=== PATIENT | female | born 1935 | race Caucasian/White ===

== ENCOUNTER 2022-04-25 19:28 | Emergency (ER) | payer MEDICARE ==
[~2022-04-25] VITALS: Ht 167.6 cm; Wt 68.0 kg
[2022-04-25] MEDS ORDERED: ONDANSETRON HCL INJ 2MG/ML 2ML 2 MG/ML VIAL IV STA (19:56)
[2022-04-25] MEDS ORDERED: SODIUM CHLORIDE 0.9% 1000ML 1,000 ML IV STA ×2 (19:56→20:56)
[2022-04-25 20:33] LABS: BASOPHILS % 0.4 % (0.0-1.0); EOSINOPHILS # (AUTO) 0.2 (0.0-0.4); EOSINOPHILS % 2.7 % (0.0-6.0); HEMATOCRIT 36.8 % (34.2-44.1); HEMOGLOBIN 11.9 g/dL (12.0-16.0); LYMPHOCYTES # (AUTO) 2.4 (1.0-3.2); LYMPHOCYTES % 29.1 % (18.0-39.1); MEAN CORPUSCULAR HEMOGLOBIN 30.9 pg (28-32); MEAN CORPUSCULAR HGB CONC 32.3 g/dL (31-35); MEAN CORPUSCULAR VOLUME 95.6 fL (81-99); MONOCYTES # (AUTO) 0.7 (0.2-0.8); MONOCYTES % 7.8 % (4.4-11.3); NEUTROPHILS # (AUTO) 4.9 (2.1-6.9); NEUTROPHILS % 59.5 % (38.7-80.0); PLATELET COUNT 190 x10e3/uL (140-360); RED BLOOD COUNT 3.85 x10e6/uL (3.6-5.1); RED CELL DISTRIBUTION WIDTH 13.3 % (11.7-14.4)
[2022-04-25 20:36] LABS: CLARITY,URINE CLEAR (CLEAR); COLOR,URINE ORANGE (YELLOW); KETONES,URINE TRACE (NEGATIVE); LEUKOCYTE ESTERASE ,URINE NEGATIVE (NEGATIVE); NITRITE,URINE POSITIVE (NEGATIVE); PROTEIN,URINE DIPSTICK 1+ (NEGATIVE); URINE UROBILINOGEN 1 mg/dL (0.2 - 1)
[2022-04-25 20:54] LABS: ALBUMIN 3.3 g/dL (3.5-5.0); ANION GAP 14.3 mmol/L (8-16); CALCIUM 8.3 mg/dL (8.4-10.2); CREATININE, SERUM 1.34 mg/dL (0.57-1.11); POTASSIUM 4.3 mmol/L (3.5-5.1)
[2022-04-25 20:55] LABS: BACTERIA,URINE RARE /HPF; EPITHELIAL CELLS,URINE FEW /LPF; RBC,URINE 0-5 /HPF (0-5); WBC,URINE (MAN) 0-5 /HPF (0-5)
[2022-04-25] MEDS ORDERED: INSULIN REGULAR, HUMAN 100 UNIT/1 ML IV STA (20:56)
[2022-04-25 21:01] LABS: CREATINE KINASE MB 0.9 ng/mL (0-5.0)
[2022-04-25] MEDS ORDERED: IOPAMIDOL 370 MG/ML 100 ML INFUS..BTL INJ ONE (21:13)
[2022-04-25] MEDS ORDERED: ONDANSETRON ODT4 MG PO (22:59)
[2022-04-25] MEDS ORDERED: PEPCID20 MG PO (23:05)
[2022-04-25 23:12] VITALS: BP 105/73
== END 2022-04-25 23:10 | disposition home or self-care (01) ==
LOC: ER 19:39
DX: R11.2 Nausea with vomiting, unspecified (principal); E11.65 Type 2 diabetes mellitus with hyperglycemia; K44.9 Diaphragmatic hernia without obstruction or gangrene; R10.13 Epigastric pain
CPT/HCPCS: 36415; 74177; 80053; 81001; 82550; 82553; 82948; 83690; 84484; 85025; 93005; 99284; J1817; J2405; J7030; Q9967

== ENCOUNTER 2022-06-04 14:10 | Observation (INO) | payer MEDICARE ==
[~2022-06-04] VITALS: Ht 167.6 cm; Wt 68.0 kg
[~2022-06-04 14:10] MED LIST: ONDANSETRON ODT4 MG PO; PEPCID20 MG PO
[2022-06-04 14:57] LABS: BASOPHILS # (AUTO) 0.1 (0.0-0.1); BASOPHILS % 0.7 % (0.0-1.0); EOSINOPHILS # (AUTO) 0.2 (0.0-0.4); EOSINOPHILS % 1.8 % (0.0-6.0); HEMATOCRIT 38.9 % (34.2-44.1); HEMOGLOBIN 12.7 g/dL (12.0-16.0); LYMPHOCYTES # (AUTO) 2.8 (1.0-3.2); LYMPHOCYTES % 30.6 % (18.0-39.1); MEAN CORPUSCULAR HEMOGLOBIN 30.8 pg (28-32); MEAN CORPUSCULAR HGB CONC 32.6 g/dL (31-35); MEAN CORPUSCULAR VOLUME 94.2 fL (81-99); MONOCYTES # (AUTO) 0.4 (0.2-0.8); MONOCYTES % 4.6 % (4.4-11.3); NEUTROPHILS # (AUTO) 5.7 (2.1-6.9); NEUTROPHILS % 62.1 % (38.7-80.0); PLATELET COUNT 262 x10e3/uL (140-360); RED BLOOD COUNT 4.13 x10e6/uL (3.6-5.1); RED CELL DISTRIBUTION WIDTH 13.4 % (11.7-14.4)
[2022-06-04 15:14] LABS: INR 1.07; PARTIAL THROMBOPLASTIN TIME 27.3 seconds (23.8-35.5); PROTHROMBIN TIME 14.9 seconds (11.9-14.5)
[2022-06-04 15:19] LABS: ALANINE AMINOTRANSFERASE 23 IU/L (0-55); ALBUMIN 3.8 g/dL (3.5-5.0); ALBUMIN/GLOBULIN RATIO 1.2 (0.8-2.0); ALKALINE PHOSPHATASE 63 IU/L (40-150); ANION GAP 14.9 mmol/L (8-16); BLOOD UREA NITROGEN 21 mg/dL (7-26); BUN/CREATININE RATIO 14 (6-25); CALCIUM 8.9 mg/dL (8.4-10.2); CARBON DIOXIDE 26 mmol/L (22-29); CHLORIDE 103 mmol/L (98-107); CREATINE KINASE 47 IU/L (29-168); CREATININE, SERUM 1.46 mg/dL (0.57-1.11); GLUCOSE 137 mg/dL (74-118); POTASSIUM 3.9 mmol/L (3.5-5.1); SODIUM 140 mmol/L (136-145)
[2022-06-04] MEDS ORDERED: Morphine 2mg Syringe 2 MG/ML SYR IV PRN (17:00)
[2022-06-04] MEDS ORDERED: ONDANSETRON HCL INJ 2MG/ML 2ML 2 MG/ML VIAL IV PRN (17:00)
[2022-06-04] MEDS ORDERED: Morphine 4mg INJECTION 4 MG/ML INJ IV PRN (17:00)
[2022-06-04 17:07] LABS: CLARITY,URINE SL CLOUDY (CLEAR); COLOR,URINE YELLOW (YELLOW); KETONES,URINE NEGATIVE (NEGATIVE); LEUKOCYTE ESTERASE ,URINE TRACE (NEGATIVE); NITRITE,URINE NEGATIVE (NEGATIVE); PROTEIN,URINE DIPSTICK 1+ (NEGATIVE); URINE UROBILINOGEN 0.2 mg/dL (0.2 - 1)
[2022-06-04 17:11] LABS: BACTERIA,URINE MODERATE /HPF; MUCUS,URINE FEW (RARE); RENAL EPITHELIAL CELLS,URINE FEW; TRANSITIONAL EPI CELLS,URINE MODERATE
[2022-06-04 17:12] LABS: EPITHELIAL CELLS,URINE MODERATE /LPF
[2022-06-04] MEDS: SODIUM CHLORIDE 0.9% 1000ML 1,000 ML IV SCH (18:00)
[2022-06-05] MEDS: SODIUM CHLORIDE 0.9% 1000ML 1,000 ML IV SCH (04:28)
[2022-06-05 06:54] LABS: BASOPHILS % 0.4 % (0.0-1.0); EOSINOPHILS # (AUTO) 0.1 (0.0-0.4); EOSINOPHILS % 0.9 % (0.0-6.0); HEMATOCRIT 32.9 % (34.2-44.1); HEMOGLOBIN 11.1 g/dL (12.0-16.0); LYMPHOCYTES % 21.5 % (18.0-39.1); MEAN CORPUSCULAR HGB CONC 33.7 g/dL (31-35); MEAN CORPUSCULAR VOLUME 91.9 fL (81-99); MONOCYTES # (AUTO) 0.5 (0.2-0.8); MONOCYTES % 5.3 % (4.4-11.3); NEUTROPHILS # (AUTO) 6.6 (2.1-6.9); NEUTROPHILS % 71.6 % (38.7-80.0); PLATELET COUNT 198 x10e3/uL (140-360); RED BLOOD COUNT 3.58 x10e6/uL (3.6-5.1); RED CELL DISTRIBUTION WIDTH 13.6 % (11.7-14.4)
[2022-06-05 07:08] LABS: ANION GAP 11.5 mmol/L (8-16); POTASSIUM 4.5 mmol/L (3.5-5.1)
[2022-06-05 07:15] LABS: CREATINE KINASE 34 IU/L (29-168)
[2022-06-05 08:19] VITALS: BP 185/53
[2022-06-05 08:20] VITALS: BP 179/55
[2022-06-05] MEDS ORDERED: CARVEDILOL12.5 MG PO (10:45)
[2022-06-05] MEDS ORDERED: LOSARTAN POTAS100 MG PO (10:45)
[2022-06-05] MEDS ORDERED: ONDANSETRON HCL INJ 2MG/ML 2ML 2 MG/ML VIAL IV PRN (10:45)
[2022-06-05] MEDS ORDERED: LEXAPRO20 MG PO ×2 (10:49→15:45)
[2022-06-05] MEDS ORDERED: SYNTHROID125 MCG PO (10:50)
[2022-06-05] MEDS ORDERED: DEXTROSE 50% SYRINGE 50 ML IV PRN (11:00)
[2022-06-05] MEDS: INSULIN LISPRO 100 UNIT/1 ML 3ML VIAL SQ SCH ×3 (11:49→21:00)
[2022-06-05 12:03] VITALS: BP 168/58
[2022-06-05 14:29] LABS: CREATINE KINASE 30 IU/L (29-168)
[2022-06-05 15:29] VITALS: BP 164/58
[2022-06-05] MEDS: FAMOTIDINE 20 MG TAB PO SCH (17:42)
[2022-06-05] MEDS: CARVEDILOL 12.5 MG TAB PO SCH (17:42)
[2022-06-05 20:00] VITALS: BP 158/55
[2022-06-05 20:21] VITALS: BP 164/58
[2022-06-05] MEDS: ESCITALOPRAM OXALATE 10 MG TAB PO SCH (21:26)
[2022-06-06] VITALS (9 sets, daily range): BP systolic 146–199; BP diastolic 41–64
[2022-06-06 06:09] LABS: BASOPHILS % 0.5 % (0.0-1.0); EOSINOPHILS # (AUTO) 0.2 (0.0-0.4); EOSINOPHILS % 2.3 % (0.0-6.0); HEMATOCRIT 35.4 % (34.2-44.1); HEMOGLOBIN 11.8 g/dL (12.0-16.0); LYMPHOCYTES # (AUTO) 2.1 (1.0-3.2); LYMPHOCYTES % 25.3 % (18.0-39.1); MEAN CORPUSCULAR HEMOGLOBIN 30.6 pg (28-32); MEAN CORPUSCULAR HGB CONC 33.3 g/dL (31-35); MEAN CORPUSCULAR VOLUME 91.9 fL (81-99); MONOCYTES # (AUTO) 0.5 (0.2-0.8); MONOCYTES % 5.3 % (4.4-11.3); NEUTROPHILS # (AUTO) 5.6 (2.1-6.9); NEUTROPHILS % 66.2 % (38.7-80.0); PLATELET COUNT 222 x10e3/uL (140-360); RED BLOOD COUNT 3.85 x10e6/uL (3.6-5.1); RED CELL DISTRIBUTION WIDTH 13.7 % (11.7-14.4)
[2022-06-06 06:40] LABS: CHOL/HDL RATIO 3.2 (3.0-3.6); MAGNESIUM 1.8 MG/DL (1.3-2.1); PHOSPHORUS 2.5 MG/DL (2.3-4.7)
[2022-06-06 07:07] LABS: THYROID STIMULATING HORMONE 4.25 uIU/mL (0.350-4.940)
[2022-06-06] MEDS: INSULIN LISPRO 100 UNIT/1 ML 3ML VIAL SQ SCH ×4 (07:52→21:05)
[2022-06-06 08:36] LABS: ANION GAP 21.4 mmol/L (8-16); CALCIUM 8.6 mg/dL (8.4-10.2); CREATININE, SERUM 0.93 mg/dL (0.57-1.11); POTASSIUM 4.4 mmol/L (3.5-5.1)
[2022-06-06] MEDS ORDERED: AMLODIPINE BESYL5 MG PO (08:38)
[2022-06-06] MEDS: CARVEDILOL 12.5 MG TAB PO SCH ×2 (08:40→16:11)
[2022-06-06] MEDS: LOSARTAN POTASSIUM 100 MG TAB PO SCH (08:41)
[2022-06-06] MEDS: ESCITALOPRAM OXALATE 10 MG TAB PO SCH ×2 (08:41→20:35)
[2022-06-06] MEDS: FAMOTIDINE 20 MG TAB PO SCH ×2 (08:41→16:10)
[2022-06-06 08:51] LABS: CREATINE KINASE 43 IU/L (29-168)
[2022-06-06] MEDS: ACETAMINOPHEN 325 MG TAB PO PRN (08:51)
[2022-06-06] MEDS: AMLODIPINE BESYLATE 5 MG TAB PO SCH (11:43)
[2022-06-07 01:36] VITALS: BP 135/57
[2022-06-07 04:42] VITALS: BP 164/60
[2022-06-07] MEDS: ACETAMINOPHEN 325 MG TAB PO PRN (04:50)
[2022-06-07] MEDS ORDERED: LEVOTHYROXINE SODIUM 125 MCG TAB PO SCH (06:30)
[2022-06-07] MEDS: INSULIN LISPRO 100 UNIT/1 ML 3ML VIAL SQ SCH (07:58)
[2022-06-07 09:01] VITALS: BP 158/69
[2022-06-07] MEDS: FAMOTIDINE 20 MG TAB PO SCH (09:07)
[2022-06-07] MEDS: CARVEDILOL 12.5 MG TAB PO SCH (09:07)
[2022-06-07] MEDS: ESCITALOPRAM OXALATE 10 MG TAB PO SCH (09:07)
[2022-06-07] MEDS: AMLODIPINE BESYLATE 5 MG TAB PO SCH (09:07)
[2022-06-07] MEDS: LOSARTAN POTASSIUM 100 MG TAB PO SCH (09:08)
[2022-06-07 09:38] VITALS: BP 197/74
[2022-06-07] MEDS ORDERED: HYDRALAZINE HCL 25 MG TAB PO PRN (09:45)
[2022-06-07] MEDS ORDERED: GLIPIZIDE 5 MG TAB ER PO SCH (09:45)
[2022-06-07] MEDS ORDERED: ONDANSETRON HCL 4 MG ORAL DISINTEGRATING TAB PO PRN (12:00)
[2022-06-07 12:27] VITALS: BP 171/62
[2022-06-08] MEDS ORDERED: AMLODIPINE BESYLATE 5 MG TAB PO SCH (09:00)
== END 2022-06-07 12:55 | disposition home or self-care (01) ==
LOC: ER 14:39 → ERHOLD 16:50 → MED/SURG2 06-05 07:55 → MED/SURG3 06-05 16:23 → OBSVTOIN 06-07 09:48 → INTOOBSV 06-07 09:48
PROVIDERS: ADMIT Internal Medicine; ATTEND Internal Medicine
DX: N39.0 Urinary tract infection, site not specified (principal); E86.0 Dehydration; I95.1 Orthostatic hypotension; F03.90 Unspecified dementia, unspecified severity, without behavioral disturbance, psychotic disturbance, mood disturbance, and anxiety; I10 Essential (primary) hypertension; E11.9 Type 2 diabetes mellitus without complications; E03.9 Hypothyroidism, unspecified; E78.5 Hyperlipidemia, unspecified; Z90.49 Acquired absence of other specified parts of digestive tract; Z90.710 Acquired absence of both cervix and uterus; Z88.8 Allergy status to other drugs, medicaments and biological substances; Z20.822 Contact with and (suspected) exposure to COVID-19; R33.9 Retention of urine, unspecified; N39.41 Urge incontinence; E87.1 Hypo-osmolality and hyponatremia; E83.51 Hypocalcemia; D64.9 Anemia, unspecified; K86.89 Other specified diseases of pancreas; K44.9 Diaphragmatic hernia without obstruction or gangrene
CPT/HCPCS: 0223U; 36415 ×4; 51700; 51702; 71045 ×2; 74176; 80048 ×2; 80053; 80061; 81001; 82550 ×3; 82553 ×3; 82607; 82746; 82948 ×3; 83036; 83540; 83735; 83970; 84100; 84443; 84466; 84484 ×3; 85025 ×3; 85610; 85730; 87086; 93005; 97116; 97161; 99284; G0378 ×4; J0696 ×3; J2270; J2405; J7030 ×2

== ENCOUNTER 2022-06-09 18:35 | Emergency (ER) | payer MEDICARE ==
[~2022-06-09] VITALS: Ht 167.6 cm; Wt 68.0 kg
[~2022-06-09 18:35] MED LIST changes: +AMLODIPINE BESYL5 MG PO; +CARVEDILOL12.5 MG PO; +LEXAPRO20 MG PO; +LOSARTAN POTAS100 MG PO; +SYNTHROID125 MCG PO
[2022-06-09] MEDS ORDERED: FLOMAX0.4 MG PO (19:08)
[2022-06-09 21:10] VITALS: BP 158/64
== END 2022-06-09 20:53 | disposition home or self-care (01) ==
LOC: ER 18:52
DX: Z46.6 Encounter for fitting and adjustment of urinary device (principal); I10 Essential (primary) hypertension; E11.9 Type 2 diabetes mellitus without complications; E78.5 Hyperlipidemia, unspecified; E03.9 Hypothyroidism, unspecified
CPT/HCPCS: 99282

== ENCOUNTER 2022-11-26 18:40 | Emergency (ER) | payer MEDICARE ==
[~2022-11-26] VITALS: Ht 165.1 cm; Wt 63.5 kg
[~2022-11-26 18:40] MED LIST changes: +FLOMAX0.4 MG PO
[2022-11-26 20:09] VITALS: O2SAT 97
[2022-11-26] MEDS ORDERED: CYCLOBENZAPRINE10 MG PO (20:59)
[2022-11-26] MEDS ORDERED: CYCLOBENZAPRINE HCL 10 MG TAB PO ONE (21:00)
[2022-11-27] MEDS ORDERED: METHOCARBAMOL750 MG PO (15:08)
[2022-11-27] MEDS ORDERED: ACETAMINOPHEN-1 EAC4 PEG (15:08)
== END 2022-11-26 21:16 | disposition home or self-care (01) ==
LOC: ER 19:57
DX: M54.50 Low back pain, unspecified (principal); F03.90 Unspecified dementia, unspecified severity, without behavioral disturbance, psychotic disturbance, mood disturbance, and anxiety; E03.9 Hypothyroidism, unspecified

== ENCOUNTER 2022-11-27 13:42 | Emergency (ER) | payer MEDICARE ==
[~2022-11-27] VITALS: Ht 165.1 cm; Wt 63.5 kg
[~2022-11-27 13:42] MED LIST changes: +CYCLOBENZAPRINE10 MG PO
[2022-11-27] MEDS ORDERED: METHOCARBAMOL 500 MG TAB PO ONE (14:15)
[2022-11-27] MEDS ORDERED: DEXAMETHASONE SOD PHOS 10 MG/1 ML VIAL ONE (14:20)
[2022-11-27] MEDS ORDERED: HYDROCODONE/APAP 5MG-325MG TAB PO ONE (14:30)
[2022-11-27] MEDS ORDERED: DEXAMETHASONE SOD PHOS 10 MG/1 ML VIAL IM ONE (14:30)
[2022-11-27] MEDS ORDERED: METHOCARBAMOL750 MG PO (15:08)
[2022-11-27] MEDS ORDERED: ACETAMINOPHEN-1 EAC4 PEG (15:08)
[2022-11-28] MEDS ORDERED: CEFDINIR300 MG PO (15:10)
== END 2022-11-27 15:22 | disposition home or self-care (01) ==
LOC: ER 13:46
DX: M84.48XA Pathological fracture, other site, initial encounter for fracture (principal); E11.9 Type 2 diabetes mellitus without complications; E03.9 Hypothyroidism, unspecified; Z88.8 Allergy status to other drugs, medicaments and biological substances; Z79.4 Long term (current) use of insulin; Z79.899 Other long term (current) drug therapy; Z87.440 Personal history of urinary (tract) infections
CPT/HCPCS: 36415; 72100; 82948; 99283; J1100

== ENCOUNTER 2022-11-28 11:58 | Emergency (ER) | payer MEDICARE ==
[~2022-11-28] VITALS: Ht 165.1 cm; Wt 63.5 kg
[~2022-11-28 11:58] MED LIST changes: +ACETAMINOPHEN-1 EAC4 PEG; +METHOCARBAMOL750 MG PO
[2022-11-28] MEDS ORDERED: SODIUM CHLORIDE 0.9% 1000ML 1,000 ML IV SCH (12:30)
[2022-11-28 12:42] LABS: BASOPHILS % 0.1 % (0.0-1.0); HEMATOCRIT 34.7 % (34.2-44.1); LYMPHOCYTES # (AUTO) 1.3 (1.0-3.2); LYMPHOCYTES % 12.1 % (18.0-39.1); MEAN CORPUSCULAR HGB CONC 31.7 g/dL (31-35); MEAN CORPUSCULAR VOLUME 94.6 fL (81-99); MONOCYTES # (AUTO) 0.6 (0.2-0.8); MONOCYTES % 6.2 % (4.4-11.3); NEUTROPHILS # (AUTO) 8.4 (2.1-6.9); PLATELET COUNT 225 x10e3/uL (140-360); RED BLOOD COUNT 3.67 x10e6/uL (3.6-5.1); RED CELL DISTRIBUTION WIDTH 13.1 % (11.7-14.4)
[2022-11-28] MEDS ORDERED: INSULIN REGULAR, HUMAN 100 UNIT/1 ML IV ONE (13:00)
[2022-11-28 13:08] LABS: ALBUMIN 3.3 g/dL (3.5-5.0); ANION GAP 15.6 mmol/L (8-16); CALCIUM 9.1 mg/dL (8.4-10.2); CREATININE, SERUM 1.28 mg/dL (0.57-1.11); POTASSIUM 4.6 mmol/L (3.5-5.1)
[2022-11-28 14:43] LABS: CLARITY,URINE HAZY (CLEAR); COLOR,URINE YELLOW (YELLOW); LEUKOCYTE ESTERASE ,URINE NEGATIVE (NEGATIVE); NITRITE,URINE POSITIVE (NEGATIVE)
[2022-11-28 14:44] LABS: KETONES,URINE NEGATIVE (NEGATIVE); PROTEIN,URINE DIPSTICK NEGATIVE (NEGATIVE); URINE UROBILINOGEN 0.2 mg/dL (0.2 - 1)
[2022-11-28 14:45] LABS: AMORPHOUS SEDIMENT,URINE FEW (FEW); BACTERIA,URINE MANY /HPF; EPITHELIAL CELLS,URINE FEW /LPF; HYALINE CASTS 0-1 (0-1); MUCUS,URINE FEW (RARE)
[2022-11-28] MEDS ORDERED: CEFDINIR300 MG PO (15:10)
[2022-11-29] MEDS ORDERED: HUMALOG100 UNIT/1 SQ (14:29)
[2022-11-29] MEDS ORDERED: FLOMAX0.4 MG PO (14:29)
[2022-11-29] MEDS ORDERED: ATORVASTATIN CA20 MG PO (14:29)
[2022-11-29] MEDS ORDERED: LANTUS 3ML100 UNITS/ SQ (14:29)
[2022-11-29] MEDS ORDERED: NITROFURANTOIN50 MG PO (14:49)
== END 2022-11-28 16:30 | disposition home or self-care (01) ==
LOC: ER 12:04
DX: E11.65 Type 2 diabetes mellitus with hyperglycemia (principal); Z79.4 Long term (current) use of insulin; Z79.84 Long term (current) use of oral hypoglycemic drugs; N39.0 Urinary tract infection, site not specified; F03.90 Unspecified dementia, unspecified severity, without behavioral disturbance, psychotic disturbance, mood disturbance, and anxiety; Z79.899 Other long term (current) drug therapy
CPT/HCPCS: 36415; 71045; 80053; 81001; 82948; 85025; 87086; 99285; J0696; J1817; J7030

== ENCOUNTER 2022-11-29 09:30 | Inpatient (IN) | payer MEDICARE ==
[~2022-11-29] VITALS: Ht 160 cm; Wt 64.0 kg
[~2022-11-29 09:30] MED LIST changes: +CEFDINIR300 MG PO
[2022-11-29] MEDS ORDERED: LACTATED RINGER'S 1,000 ML INJ ONE (09:45)
[2022-11-29 10:01] LABS: BASOPHILS # (AUTO) 0.1 (0.0-0.1); BASOPHILS % 0.6 % (0.0-1.0); EOSINOPHILS # (AUTO) 0.1 (0.0-0.4); HEMOGLOBIN 12.1 g/dL (12.0-16.0); LYMPHOCYTES # (AUTO) 3.9 (1.0-3.2); LYMPHOCYTES % 38.7 % (18.0-39.1); MEAN CORPUSCULAR HEMOGLOBIN 30.6 pg (28-32); MEAN CORPUSCULAR HGB CONC 32.7 g/dL (31-35); MEAN CORPUSCULAR VOLUME 93.4 fL (81-99); MONOCYTES # (AUTO) 0.7 (0.2-0.8); NEUTROPHILS # (AUTO) 5.1 (2.1-6.9); NEUTROPHILS % 51.3 % (38.7-80.0); PLATELET COUNT 236 x10e3/uL (140-360); RED BLOOD COUNT 3.96 x10e6/uL (3.6-5.1); RED CELL DISTRIBUTION WIDTH 13.1 % (11.7-14.4)
[2022-11-29 10:33] LABS: ALBUMIN 3.3 g/dL (3.5-5.0); ALBUMIN/GLOBULIN RATIO 1.1 (0.8-2.0); ANION GAP 14.7 mmol/L (8-16); CALCIUM 8.9 mg/dL (8.4-10.2); CREATININE, SERUM 0.91 mg/dL (0.57-1.11); POTASSIUM 3.7 mmol/L (3.5-5.1)
[2022-11-29] MEDS: SODIUM CHLORIDE 0.9% 1000ML 1,000 ML IV SCH ×2 (10:40→22:27)
[2022-11-29] MEDS ORDERED: ONDANSETRON HCL INJ 2MG/ML 2ML 2 MG/ML VIAL ONE (11:50)
[2022-11-29] MEDS ORDERED: DEXAMETHASONE SOD PHOS INJ 4 MG/ML SDV ONE (11:50)
[2022-11-29] MEDS ORDERED: POVIDONE IODINE 0.05% 0.05 % ML PO ONE (11:50)
[2022-11-29] MEDS ORDERED: SEVOFLURANE INHAL SOLN 250 ML PEN BTL ONE (11:50)
[2022-11-29] MEDS ORDERED: PROPOFOL IV EMULSION 10 MG/ML 20 ML VIAL ONE (11:50)
[2022-11-29] MEDS ORDERED: LIDOCAINE HCL 2% LOCAL INJ 5 ML SDV VIAL INJ ONE (11:50)
[2022-11-29] MEDS ORDERED: ROCURONIUM BROMIDE 10 MG/ML 5ML VIAL IV ONE (11:50)
[2022-11-29] MEDS ORDERED: POTASSIUM CHLORIDE 20 MEQ TAB CR PO PRN (14:15)
[2022-11-29] MEDS ORDERED: ONDANSETRON HCL INJ 2MG/ML 2ML 2 MG/ML VIAL IV PRN (14:15)
[2022-11-29] MEDS ORDERED: DOCUSATE SODIUM 100 MG CAP PO PRN (14:15)
[2022-11-29] MEDS ORDERED: BENZONATATE 100 MG CAP PO PRN (14:15)
[2022-11-29] MEDS ORDERED: MELATONIN 5 MG TABLET PO PRN (14:15)
[2022-11-29] MEDS ORDERED: DIPHENHYDRAMINE HCL 25 MG CAP PO PRN (14:15)
[2022-11-29] MEDS ORDERED: DEXTROSE 50% SYRINGE 50 ML IV PRN ×2 (14:15→14:45)
[2022-11-29] MEDS ORDERED: SIMETHICONE 80 MG CHEW PO PRN (14:15)
[2022-11-29] MEDS ORDERED: ACETAMINOPHEN 325 MG TAB PO PRN (14:15)
[2022-11-29] MEDS ORDERED: LIDOCAINE 4% PATCH TP PRN ×2 (14:15→17:45)
[2022-11-29] MEDS ORDERED: HYDRALAZINE HCL 20 MG/ML VIAL IV PRN (14:15)
[2022-11-29] MEDS ORDERED: ATORVASTATIN CA20 MG PO (14:29)
[2022-11-29] MEDS ORDERED: HUMALOG100 UNIT/1 SQ (14:29)
[2022-11-29] MEDS ORDERED: LANTUS 3ML100 UNITS/ SQ (14:29)
[2022-11-29] MEDS ORDERED: FLOMAX0.4 MG PO (14:29)
[2022-11-29] MEDS ORDERED: IPRATROPIUM BROMIDE 0.02% 2.5 ML NEB NEB PRN (14:30)
[2022-11-29] MEDS ORDERED: ALBUTEROL SULF 0.083% NEB SOLN 3 ML NEB NEB PRN (14:30)
[2022-11-29] MEDS ORDERED: NITROFURANTOIN50 MG PO (14:49)
[2022-11-29 15:20] VITALS: BP 176/51
[2022-11-29 15:51] VITALS: BP 158/59
[2022-11-29] MEDS: CARVEDILOL 12.5 MG TAB PO SCH ×2 (15:51→17:00)
[2022-11-29] MEDS: LOSARTAN POTASSIUM 100 MG TAB PO SCH (15:58)
[2022-11-29] MEDS: INSULIN LISPRO 100 UNIT/1 ML 3ML VIAL SQ SCH ×2 (16:30→21:00)
[2022-11-29] MEDS: ESCITALOPRAM OXALATE 10 MG TAB PO SCH (17:14)
[2022-11-29] MEDS: ATORVASTATIN 20 MG TAB PO SCH (17:14)
[2022-11-29] MEDS: ENOXAPARIN SOD INJ 40 MG/0.4 ML SYR SC SCH (17:15)
[2022-11-29 20:53] VITALS: BP 150/42
[2022-11-29 22:00] VITALS: BP 150/42
[2022-11-30] VITALS (8 sets, daily range): BP systolic 150–192; BP diastolic 49–59
[2022-11-30] MEDS: ACETAMINOPHEN/CODEINE 300MG - 30MG TAB PO PRN (02:47)
[2022-11-30 05:15] LABS: BASOPHILS % 0.6 % (0.0-1.0); EOSINOPHILS # (AUTO) 0.2 (0.0-0.4); EOSINOPHILS % 2.6 % (0.0-6.0); HEMATOCRIT 35.1 % (34.2-44.1); HEMOGLOBIN 11.1 g/dL (12.0-16.0); LYMPHOCYTES % 31.7 % (18.0-39.1); MEAN CORPUSCULAR HEMOGLOBIN 30.1 pg (28-32); MEAN CORPUSCULAR HGB CONC 31.6 g/dL (31-35); MEAN CORPUSCULAR VOLUME 95.1 fL (81-99); MONOCYTES # (AUTO) 0.5 (0.2-0.8); MONOCYTES % 7.8 % (4.4-11.3); NEUTROPHILS # (AUTO) 3.6 (2.1-6.9); NEUTROPHILS % 56.7 % (38.7-80.0); PLATELET COUNT 186 x10e3/uL (140-360); RED BLOOD COUNT 3.69 x10e6/uL (3.6-5.1); RED CELL DISTRIBUTION WIDTH 13.3 % (11.7-14.4)
[2022-11-30 05:33] LABS: ANION GAP 11.6 mmol/L (8-16); CREATININE, SERUM 0.84 mg/dL (0.57-1.11); POTASSIUM 3.6 mmol/L (3.5-5.1)
[2022-11-30 05:53] LABS: CHOL/HDL RATIO 3.3 (3.0-3.6); MAGNESIUM 1.6 MG/DL (1.3-2.1)
[2022-11-30] MEDS: LEVOTHYROXINE SODIUM 75 MCG TAB PO SCH (06:07)
[2022-11-30 06:13] LABS: THYROID STIMULATING HORMONE 1.304 uIU/mL (0.350-4.940)
[2022-11-30] MEDS: INSULIN LISPRO 100 UNIT/1 ML 3ML VIAL SQ SCH ×4 (08:57→23:23)
[2022-11-30] MEDS ORDERED: AMLODIPINE BESYLATE 5 MG TAB PO SCH ×2 (09:00)
[2022-11-30] MEDS: SODIUM CHLORIDE 0.9% 1000ML 1,000 ML IV SCH ×2 (09:03→23:21)
[2022-11-30] MEDS: ESCITALOPRAM OXALATE 10 MG TAB PO SCH ×2 (09:05→16:48)
[2022-11-30] MEDS: LOSARTAN POTASSIUM 100 MG TAB PO SCH (09:07)
[2022-11-30] MEDS: CARVEDILOL 12.5 MG TAB PO SCH ×2 (09:08→16:50)
[2022-11-30] MEDS: TAMSULOSIN HCL 0.4 MG CAP PO SCH ×2 (09:08→16:48)
[2022-11-30] MEDS: PANTOPRAZOLE SOD 40 MG TABEC PO SCH (09:08)
[2022-11-30] MEDS ORDERED: ONDANSETRON HCL 4 MG ORAL DISINTEGRATING TAB PO PRN (14:00)
[2022-11-30] MEDS: ATORVASTATIN 20 MG TAB PO SCH (16:49)
[2022-11-30] MEDS: ENOXAPARIN SOD INJ 40 MG/0.4 ML SYR SC SCH (16:49)
[2022-11-30] MEDS: NIFEDIPINE CR 30 MG TAB PO SCH (23:19)
[2022-12-01] VITALS (7 sets, daily range): BP systolic 142–159; BP diastolic 51–83
[2022-12-01] MEDS: LEVOTHYROXINE SODIUM 75 MCG TAB PO SCH (06:24)
[2022-12-01] MEDS: PANTOPRAZOLE SOD 40 MG TABEC PO SCH (08:16)
[2022-12-01] MEDS: INSULIN LISPRO 100 UNIT/1 ML 3ML VIAL SQ SCH ×4 (08:17→21:03)
[2022-12-01] MEDS ORDERED: NIFEDIPINE CR 30 MG TAB PO SCH (09:00)
[2022-12-01] MEDS: CARVEDILOL 12.5 MG TAB PO SCH ×2 (09:32→17:46)
[2022-12-01] MEDS: ESCITALOPRAM OXALATE 10 MG TAB PO SCH ×2 (09:33→17:46)
[2022-12-01] MEDS: LOSARTAN POTASSIUM 100 MG TAB PO SCH (09:33)
[2022-12-01] MEDS: NIFEDIPINE CR 30 MG TAB PO SCH (09:34)
[2022-12-01] MEDS: TAMSULOSIN HCL 0.4 MG CAP PO SCH ×2 (09:34→17:46)
[2022-12-01] MEDS: SODIUM CHLORIDE 0.9% 1000ML 1,000 ML IV SCH (13:42)
[2022-12-01] MEDS: ENOXAPARIN SOD INJ 40 MG/0.4 ML SYR SC SCH (17:42)
[2022-12-01] MEDS: ATORVASTATIN 20 MG TAB PO SCH (17:42)
[2022-12-01] MEDS: ACETAMINOPHEN/CODEINE 300MG - 30MG TAB PO PRN (20:55)
[2022-12-02] VITALS (9 sets, daily range): BP systolic 104–183; BP diastolic 50–91
[2022-12-02] MEDS: SODIUM CHLORIDE 0.9% 1000ML 1,000 ML IV SCH (04:39)
[2022-12-02] MEDS: LEVOTHYROXINE SODIUM 75 MCG TAB PO SCH (04:39)
[2022-12-02] MEDS: PANTOPRAZOLE SOD 40 MG TABEC PO SCH (09:49)
[2022-12-02] MEDS: NIFEDIPINE CR 30 MG TAB PO SCH ×2 (09:49→20:23)
[2022-12-02] MEDS: TAMSULOSIN HCL 0.4 MG CAP PO SCH ×2 (09:49→15:45)
[2022-12-02] MEDS: ESCITALOPRAM OXALATE 10 MG TAB PO SCH ×2 (09:49→15:44)
[2022-12-02] MEDS: LOSARTAN POTASSIUM 100 MG TAB PO SCH (09:49)
[2022-12-02] MEDS: CARVEDILOL 12.5 MG TAB PO SCH ×2 (09:51→15:45)
[2022-12-02] MEDS: INSULIN LISPRO 100 UNIT/1 ML 3ML VIAL SQ SCH ×4 (09:56→20:32)
[2022-12-02] MEDS: ENOXAPARIN SOD INJ 40 MG/0.4 ML SYR SC SCH (15:45)
[2022-12-02] MEDS: ATORVASTATIN 20 MG TAB PO SCH (15:45)
[2022-12-02 17:16] LABS: INR 0.97; PROTHROMBIN TIME 13.4 seconds (11.9-14.5)
[2022-12-02 17:17] LABS: PARTIAL THROMBOPLASTIN TIME 31.4 seconds (23.8-35.5)
[2022-12-02] MEDS: DEXTROSE 5%/0.9% SOD CHL 1,000 ML IV SCH (18:00)
[2022-12-02] MEDS: AMITRIPTYLINE HCL 25 MG TAB PO SCH (20:24)
[2022-12-02] MEDS ORDERED: AMITRIPTYLINE HCL 25 MG TAB PO SCH (21:00)
[2022-12-03] VITALS (8 sets, daily range): BP systolic 151–175; BP diastolic 53–98
[2022-12-03 05:33] LABS: BASOPHILS % 0.5 % (0.0-1.0); EOSINOPHILS # (AUTO) 0.2 (0.0-0.4); EOSINOPHILS % 2.4 % (0.0-6.0); HEMATOCRIT 33.1 % (34.2-44.1); HEMOGLOBIN 10.7 g/dL (12.0-16.0); LYMPHOCYTES # (AUTO) 1.7 (1.0-3.2); LYMPHOCYTES % 23.1 % (18.0-39.1); MEAN CORPUSCULAR HEMOGLOBIN 30.5 pg (28-32); MEAN CORPUSCULAR HGB CONC 32.3 g/dL (31-35); MEAN CORPUSCULAR VOLUME 94.3 fL (81-99); MONOCYTES # (AUTO) 0.6 (0.2-0.8); NEUTROPHILS # (AUTO) 4.9 (2.1-6.9); NEUTROPHILS % 65.6 % (38.7-80.0); PLATELET COUNT 201 x10e3/uL (140-360); RED BLOOD COUNT 3.51 x10e6/uL (3.6-5.1); RED CELL DISTRIBUTION WIDTH 13.3 % (11.7-14.4)
[2022-12-03 06:02] LABS: ANION GAP 11.1 mmol/L (8-16); CALCIUM 8.1 mg/dL (8.4-10.2); CREATININE, SERUM 0.97 mg/dL (0.57-1.11); POTASSIUM 4.1 mmol/L (3.5-5.1)
[2022-12-03] MEDS: LEVOTHYROXINE SODIUM 75 MCG TAB PO SCH (06:33)
[2022-12-03] MEDS: DEXTROSE 5%/0.9% SOD CHL 1,000 ML IV SCH ×2 (06:35→19:55)
[2022-12-03] MEDS: PANTOPRAZOLE SOD 40 MG TABEC PO SCH (07:30)
[2022-12-03] MEDS: INSULIN LISPRO 100 UNIT/1 ML 3ML VIAL SQ SCH ×4 (08:32→21:07)
[2022-12-03] MEDS: CARVEDILOL 12.5 MG TAB PO SCH ×2 (09:00→17:48)
[2022-12-03] MEDS: NIFEDIPINE CR 30 MG TAB PO SCH ×2 (09:00→20:36)
[2022-12-03] MEDS: LOSARTAN POTASSIUM 100 MG TAB PO SCH (09:00)
[2022-12-03] MEDS: TAMSULOSIN HCL 0.4 MG CAP PO SCH ×2 (09:00→17:48)
[2022-12-03] MEDS: ESCITALOPRAM OXALATE 10 MG TAB PO SCH ×2 (09:00→17:48)
[2022-12-03] MEDS ORDERED: THROMBIN FOR SOLN 5,000 UNIT VIAL ONE (11:27)
[2022-12-03] MEDS ORDERED: Vancomycin IV 1 GM VIAL ONE (11:27)
[2022-12-03] MEDS ORDERED: BUPIVACAINE 0.5%/EPI 30 ML SDV INJ ONE (11:27)
[2022-12-03] MEDS ORDERED: FENTANYL CITRATE/PF 100MCG/2 ML INJ ONE (12:58)
[2022-12-03] MEDS: ACETAMINOPHEN/CODEINE 300MG - 30MG TAB PO PRN (16:20)
[2022-12-03] MEDS: ATORVASTATIN 20 MG TAB PO SCH (17:48)
[2022-12-03] MEDS: AMITRIPTYLINE HCL 25 MG TAB PO SCH (20:35)
[2022-12-04] MEDS: ACETAMINOPHEN/CODEINE 300MG - 30MG TAB PO PRN ×3 (00:21→18:54)
[2022-12-04 00:51] VITALS: BP 164/52
[2022-12-04 05:01] VITALS: BP 158/81
[2022-12-04] MEDS: LEVOTHYROXINE SODIUM 75 MCG TAB PO SCH (06:19)
[2022-12-04 07:58] VITALS: BP 173/65
[2022-12-04 08:55] VITALS: BP 173/65
[2022-12-04] MEDS: TAMSULOSIN HCL 0.4 MG CAP PO SCH ×2 (08:56→17:39)
[2022-12-04] MEDS: LOSARTAN POTASSIUM 100 MG TAB PO SCH (08:56)
[2022-12-04] MEDS: ESCITALOPRAM OXALATE 10 MG TAB PO SCH ×2 (08:57→17:39)
[2022-12-04] MEDS: NIFEDIPINE CR 30 MG TAB PO SCH (08:57)
[2022-12-04] MEDS: PANTOPRAZOLE SOD 40 MG TABEC PO SCH (08:57)
[2022-12-04] MEDS: CARVEDILOL 12.5 MG TAB PO SCH ×2 (08:58→17:00)
[2022-12-04] MEDS: INSULIN LISPRO 100 UNIT/1 ML 3ML VIAL SQ SCH ×3 (09:08→16:26)
[2022-12-04] MEDS: DEXTROSE 5%/0.9% SOD CHL 1,000 ML IV SCH (09:19)
[2022-12-04 12:00] VITALS: BP 156/57
[2022-12-04] MEDS ORDERED: ACETAMINOPHEN 325 MG TAB PO PRN (12:30)
[2022-12-04 15:21] VITALS: BP 113/46
[2022-12-04] MEDS ORDERED: SITAGLIPTIN 100 MG TAB PO SCH (15:30)
[2022-12-04] MEDS: ATORVASTATIN 20 MG TAB PO SCH (17:39)
== END 2022-12-04 19:03 | DRG 516 ==
LOC: ER 09:40 → ERHOLD 10:02 → MED/SURG2 13:00
PROVIDERS: ADMIT Internal Medicine; ATTEND Internal Medicine
PROC: 01NB0ZZ Release Lumbar Nerve, Open Approach (ICD-10-PCS; principal; 2022-12-04)
DX: M48.56XA Collapsed vertebra, not elsewhere classified, lumbar region, initial encounter for fracture (principal); N39.0 Urinary tract infection, site not specified; E03.9 Hypothyroidism, unspecified; M54.9 Dorsalgia, unspecified; G89.29 Other chronic pain; F03.90 Unspecified dementia, unspecified severity, without behavioral disturbance, psychotic disturbance, mood disturbance, and anxiety; I10 Essential (primary) hypertension; E11.65 Type 2 diabetes mellitus with hyperglycemia; F32.A Depression, unspecified; M48.061 Spinal stenosis, lumbar region without neurogenic claudication; W19.XXXA Unspecified fall, initial encounter; Z90.49 Acquired absence of other specified parts of digestive tract; Z20.822 Contact with and (suspected) exposure to COVID-19; Z79.4 Long term (current) use of insulin
CPT/HCPCS: 0223U; 36415; 51700; 72020; 72131; 72148; 80048; 80053; 80061; 82948; 83036; 83735; 84443; 85025; 85610; 85730; 86850; 86900; 88304; 88311; 93005; 93306; 94799; 96372; 99252; 99284; J0696; J1100; J1650; J2001; J2405; J7030; J7042

== ENCOUNTER 2023-01-31 16:44 | Emergency (ER) | payer MEDICARE ==
[~2023-01-31] VITALS: Ht 160 cm; Wt 64.0 kg
[~2023-01-31 16:44] MED LIST changes: +ATORVASTATIN CA20 MG PO; +HUMALOG100 UNIT/1 SQ; +LANTUS 3ML100 UNITS/ SQ; +NITROFURANTOIN50 MG PO
[2023-01-31 18:07] LABS: CLARITY,URINE CLEAR (CLEAR); COLOR,URINE YELLOW (YELLOW); KETONES,URINE NEGATIVE (NEGATIVE); LEUKOCYTE ESTERASE ,URINE NEGATIVE (NEGATIVE); NITRITE,URINE NEGATIVE (NEGATIVE); PROTEIN,URINE DIPSTICK 1+ (NEGATIVE); URINE UROBILINOGEN 0.2 mg/dL (0.2 - 1)
[2023-01-31 18:18] LABS: BACTERIA,URINE RARE /HPF; EPITHELIAL CELLS,URINE RARE /LPF; RBC,URINE 0-5 /HPF (0-5); WBC,URINE (MAN) 0-5 /HPF (0-5)
[2023-01-31 18:34] VITALS: O2SAT 100
== END 2023-01-31 18:45 | disposition home or self-care (01) ==
LOC: ER 16:51
DX: E11.649 Type 2 diabetes mellitus with hypoglycemia without coma (principal); I10 Essential (primary) hypertension; N28.9 Disorder of kidney and ureter, unspecified; E03.9 Hypothyroidism, unspecified; F32.A Depression, unspecified
CPT/HCPCS: 36415; 81001; 82948; 99283

== ENCOUNTER 2023-10-11 16:54 | Emergency (ER) | payer MEDICARE ==
[~2023-10-11] VITALS: Ht 160 cm; Wt 64.0 kg
[~2023-10-11 16:54] MED LIST changes: +DOXYCYCLINE HY100 MG PO
[2023-10-11 17:16] LABS: BASOPHILS # (AUTO) 0.1 (0.0-0.1); BASOPHILS % 0.3 % (0.0-1.0); EOSINOPHILS # (AUTO) 0.2 (0.0-0.4); EOSINOPHILS % 0.9 % (0.0-6.0); HEMATOCRIT 41.6 % (34.2-44.1); HEMOGLOBIN 12.9 g/dL (12.0-16.0); LYMPHOCYTES # (AUTO) 1.6 (1.0-3.2); LYMPHOCYTES % 8.3 % (18.0-39.1); MEAN CORPUSCULAR HEMOGLOBIN 29.5 pg (28-32); MONOCYTES % 5.6 % (4.4-11.3); NEUTROPHILS # (AUTO) 15.6 (2.1-6.9); NEUTROPHILS % 84.1 % (38.7-80.0); PLATELET COUNT 229 x10e3/uL (140-360); RED BLOOD COUNT 4.38 x10e6/uL (3.6-5.1); RED CELL DISTRIBUTION WIDTH 13.8 % (11.7-14.4); WHITE BLOOD COUNT 18.57 x10e3/uL (4.8-10.8)
[2023-10-11 17:32] LABS: ANION GAP 13.7 mmol/L (8-16); CALCIUM 8.7 mg/dL (8.4-10.2); CREATININE, SERUM 1.03 mg/dL (0.57-1.11); POTASSIUM 3.7 mmol/L (3.5-5.1)
[2023-10-11 18:10] LABS: CLARITY,URINE CLEAR (CLEAR); COLOR,URINE YELLOW (YELLOW)
[2023-10-11 18:11] LABS: BILIRUBIN,URINE NEGATIVE (NEGATIVE); GLUCOSE, URINE 500 (NEGATIVE); KETONES,URINE NEGATIVE (NEGATIVE); LEUKOCYTE ESTERASE ,URINE NEGATIVE (NEGATIVE); NITRITE,URINE NEGATIVE (NEGATIVE); PH,URINE 6 (5 - 7); PROTEIN,URINE DIPSTICK 2+ (NEGATIVE); URINE UROBILINOGEN 0.2 mg/dL (0.2 - 1)
[2023-10-11 18:30] LABS: BACTERIA,URINE MODERATE /HPF; EPITHELIAL CELLS,URINE FEW /LPF; MUCUS,URINE MANY (RARE)
[2023-10-11] MEDS ORDERED: CEFDINIR300 MG PO (19:06)
[2023-10-11 19:10] LABS: INFLUENZAE A&B ANTIGEN (RAPID) NEGATIVE (NEGATIVE); RESPIRATORY SYNC. VIRUS NEGATIVE (NEGATIVE)
[2023-10-11 19:57] VITALS: BP 143/54; PULSE 66; RESP 19; TEMP 97.8; O2SAT 96
== END 2023-10-11 19:43 | disposition home or self-care (01) ==
LOC: ER 16:57
DX: E16.2 Hypoglycemia, unspecified (principal); U07.1 COVID-19; N39.0 Urinary tract infection, site not specified; F03.90 Unspecified dementia, unspecified severity, without behavioral disturbance, psychotic disturbance, mood disturbance, and anxiety; I12.9 Hypertensive chronic kidney disease with stage 1 through stage 4 chronic kidney disease, or unspecified chronic kidney disease; E11.22 Type 2 diabetes mellitus with diabetic chronic kidney disease; E11.65 Type 2 diabetes mellitus with hyperglycemia; N18.9 Chronic kidney disease, unspecified; F32.A Depression, unspecified
CPT/HCPCS: 36415; 71045; 80048; 81001; 85025; 87400; 87420; 99284; J0696; U0002

== ENCOUNTER → 2024-10-06 | Outpatient (REF) | payer MEDICARE, OTHER | LOC: CT 08:44 | PROVIDERS: ATTEND Nurse Practitioner Family | DX: L92.8 Other granulomatous disorders of the skin and subcutaneous tissue (principal) | CPT/HCPCS: 71250 ==